=== PATIENT | female | born 1935 | race Caucasian/White ===

== ENCOUNTER 2019-01-28 10:29 | Inpatient (IN) | payer MEDICARE, BC ==
[~2019-01-28] VITALS: Ht 162.6 cm; Wt 82.0 kg
--- NOTE | 2019-01-28 10:49 | NUR ---
pt sat 79 placed on rebreather
[2019-01-28] MEDS ORDERED: furosemide 40mg/4ml inj IV ONE (11:15)
[2019-01-28] MEDS ORDERED: Dextrose 10%-water IV solution 1,000 ML IV ONE (11:52)
[2019-01-28 12:18] LABS: PARTIAL THROMBOPLASTIN TIME 35 SECONDS (22-32)
[2019-01-28 12:32] LABS: CLARITY,URINE CLOUDY (Clear); GLUCOSE, URINE NEGATIVE (Neg); KETONES,URINE 15 mg/dl (Neg); LEUKOCYTE ESTERASE ,URINE NEGATIVE (Neg); NITRITES, URINE NEGATIVE (Neg); OCCULT BLOOD,URINE MODERATE (Neg); PROTEIN,URINE >=300 mg/dl (Neg)
[2019-01-28 12:33] LABS: COLOR,URINE DARK YELLOW (Yellow); UA COLLECTION TYPE FOLEY CATH
[2019-01-28 12:35] LABS: ALBUMIN 3.2 G/DL (3.4-5.0); ALKALINE PHOSPHATASE 116 IU/L (46-116); ANION GAP 22 (8-16); BILIRUBIN,TOTAL 4.8 MG/DL (0.1-1.0); BLOOD UREA NITROGEN 31 MG/DL (7-18); BUN/CREATININE RATIO 16.4 (6.6-38.0); CHLORIDE 101 MMOL/L (99-107); CREATININE 1.89 MG/DL (0.40-0.90); GLUCOSE 64 MG/DL (70-104); SODIUM 140 MMOL/L (135-145); TOTAL CARBON DIOXIDE 17.5 MMOL/L (24-32); eGFR 26 ML/MIN
[2019-01-28 12:40] LABS: POTASSIUM 5.4 MMOL/L (3.5-5.1)
[2019-01-28 12:40] LABS: BACTERIA,URINE FEW /HPF (Neg); SQUAMOUS EPITHELIAL CELL,UR MODERATE /LPF (FEW)
[2019-01-28 12:41] LABS: AMORPHOUS URATES 4+; MUCUS STRANDS FEW /LPF (Neg); RENAL CELLS, URINE MODERATE /HPF; TRANSITIONAL EPI CELLS,URINE MANY /HPF; WBC CLUMPS,URINE FEW /HPF (NEGATIVE)
[2019-01-28 12:42] LABS: CAL OXALATE CRYSTALS FEW /HPF (NEGATIVE)
[2019-01-28 12:50] LABS: ALBUMIN/GLOBULIN RATIO 0.9 (1.1-1.5); TOTAL PROTEIN 6.9 G/DL (6.4-8.2)
[2019-01-28 12:53] LABS: ALANINE AMINOTRANSFERASE 5742 U/L (12-78); ASPARTATE AMINO TRANSFERASE > 7000 U/L (10-37)
[2019-01-28] MEDS ORDERED: CefTRIAXone/D5W-Rocephin 1gm 50 ML IV ONE (13:35)
[2019-01-28] MEDS ORDERED: vancomycin/NS 1 GM ADD-VANTAGE 250 ML IV ONE (13:35)
[2019-01-28 14:47] LABS: BASOPHILS % (AUTO) 0.2 % (0-1); EOSINOPHILS # (AUTO) 0.2 X10'3 (0-0.9); EOSINOPHILS % (AUTO) 0.9 % (0-6); HEMOGLOBIN 15.5 g/dl (12.0-16.0); LYMPHOCYTES # (AUTO) 0.6 X10'3 (1.1-4.8); LYMPHOCYTES % (AUTO) 3.1 % (21-51); MEAN CORPUSCULAR HEMOGLOBIN 29.4 PG (27.0-31.0); MEAN CORPUSCULAR HGB CONC 31.6 g/dL (33.0-36.5); MEAN CORPUSCULAR VOLUME 92.9 FL (78-98); MEAN PLATELET VOLUME 9.7 FL (7.4-10.4); MONOCYTES # (AUTO) 1.3 X10'3 (0-0.9); MONOCYTES % (AUTO) 6.2 % (2-12); NEUTROPHILS # (AUTO) 18.4 X10'3 (1.8-7.7); NEUTROPHILS % (AUTO) 89.6 % (42-75); PLATELET COUNT 101 X10'3 (140-440); RED BLOOD COUNT 5.27 X10'6 (4.20-5.60); RED CELL DISTRIBUTION WIDTH 14.7 % (11.5-14.5); WHITE BLOOD COUNT 20.5 X10'3 (4.5-11.0)
[2019-01-28] MEDS ORDERED: ASPI81TA52 PO (14:48)
[2019-01-28] MEDS ORDERED: PREG150C PO (14:48)
[2019-01-28] MEDS ORDERED: ESCI20TA PO (14:48)
[2019-01-28] MEDS ORDERED: METO-467 PO (14:48)
[2019-01-28] MEDS ORDERED: FURO-150 PO (14:48)
[2019-01-28] MEDS ORDERED: OMEP40CA13 PO (14:48)
[2019-01-28] MEDS ORDERED: PRAV40TA3 PO (14:48)
[2019-01-28] MEDS ORDERED: MYCO250C46 PO (14:48)
[2019-01-28] MEDS ORDERED: HYDR-4353 PO (14:48)
[2019-01-28 14:51] LABS: ABG BASE EXCESS -11.2 mmol/L (-2.0-3.0); ABG HCO3 14.3 mmol/L (22.0-26.0); ABG OXYGEN SATURATION 77.8 % (95-98); ABG PH (T) 7.268 (7.350-7.450); ABG PO2 (T) 52.2 mmHg (83-108); ALLEN'S TEST Positive; FCOHb 1.3 % (0.5-1.5); FMetHb 0.2 % (0.3-1.12); FO2Hb 76.6 % (94-100); MINUTE VOLUME 15 L/min; PEEP 8 cm H2O; RESPIRATORY RATE (OBSERVED) 24 b/min; TOTAL HEMOGLOBIN 16.7 G/dl (12.0-16.0)
--- NOTE | 2019-01-28 15:24 | NUR ---
DR MEDELLIN AWARE OF CRITICAL VALUE LACTIC ACID 7.6
--- NOTE | 2019-01-28 15:39 | NUR ---
relieving RN for lunch, family at bedside with pt, pt is on bipap, chastity well, waiting to be evaluated by hospitalist for "comfort care bed" per family
[2019-01-28] MEDS ORDERED: ondansetron/PF 4mg/2ml inj IV PRN (16:20)
[2019-01-28] MEDS ORDERED: acetaminophen 325mg tablet PO PRN (16:20)
[2019-01-28] MEDS ORDERED: morphine 2 MG/ML inj. syringe IV PRN ×2 (16:20)
[2019-01-28] MEDS ORDERED: morphine 10mg/0.5ml (conc. morphine) oral syringe PO PRN (16:25)
[2019-01-28] MEDS ORDERED: hyoscyamine 0.125mg TAB.SUBL SL PRN (16:25)
[2019-01-28] MEDS ORDERED: LORazepam 2 mg/ml vial IV PRN (16:25)
[2019-01-28] MEDS ORDERED: LORazepam 0.5 MG tablet PO PRN (16:25)
--- NOTE | 2019-01-28 16:30 | NUR ---
Patient in room . I have received report from Rabia in the ED and had the opportunity to ask questions and assume patient care.
[2019-01-28 16:39] LABS: PLATELET ESTIMATE DECREASED; POLYCHROMASIA FEW; TOTAL CELLS COUNTED 100
--- NOTE | 2019-01-28 17:02 | NUR ---
Pt arrived on the floor, tucked in, family present
--- NOTE | 2019-01-28 17:19 | NUR ---
Pt is able to respond to questions regarding presence of pain, comfort measures wanted. Pt declined pain medication at this time. Limited assessment per pt (comfort care).
[2019-01-28 18:00] VITALS: BP 93/33
--- NOTE | 2019-01-28 18:11 | NUR ---
Problems reprioritized. Patient report given, questions answered & plan of care reviewed with Nora Bennett
--- NOTE | 2019-01-28 18:48 | NUR ---
Received report. Patient came from ER on comfort care. DART/MRSA swab declined by family.
[2019-01-28] MEDS ORDERED: furosemide 40mg/4ml inj IV SCH (20:00)
--- NOTE | 2019-01-29 05:29 | NUR ---
RN IS TO DOCUMENT YES TO ALL APPLICABLE AREAS Pronouncement of : 1. Time Physician Notified: [id number] 2. Date of : 01/29/19 3. Time of : 509 4. DNR/Withdraw life support documented: Y 5. Monitor strip has been placed on chart: Y 6. Assessment process is of one-minute duration and includes following criteria: a) Patient is unresponsive to all stimuli: Y b) Pupils fixed and non-reactive: Y c) Auscultation of precordium reveals absence of heart tones: Y d) Auscultation of lungs reveals absence of breath sounds: Y e) Absence of blood pressure / all vital signs: Y f) QRS complexes are not present on monitor / EKG strip:Y g) Pacer spikes without capture:N/A 4. Comments: Family was at bedside when patient passed. Last breath was witnessed by myself. notified. [facility] notified. Family signed consent to release to [facility].
--- NOTE | 2019-01-29 06:15 | NUR ---
Report received from ELIZABETH Melendez. Pt at 509. awaiting transfer [facility] to [facility]
--- NOTE | 2019-01-29 07:15 | NUR ---
Pt taken care of per protocol. IV, FC DCd, pt transferred [facility] by [facility] staff
== END 2019-01-29 07:33 | disposition expired | DRG 871 ==
LOC: ER 10:30 → ORTHO 4S 17:23
PROVIDERS: ADMIT Family Medicine; ATTEND Emergency Medicine
PROC: 5A09357 Assistance with Respiratory Ventilation, Less than 24 Consecutive Hours, Continuous Positive Airway Pressure (ICD-10-PCS; principal; 2019-01-28)
DX: A41.9 Sepsis, unspecified organism (principal); K72.00 Acute and subacute hepatic failure without coma; J96.01 Acute respiratory failure with hypoxia; E87.2 Acidosis; I50.9 Heart failure, unspecified; M06.9 Rheumatoid arthritis, unspecified; N19 Unspecified kidney failure; Z66 Do not resuscitate; Z51.5 Encounter for palliative care; Z96.659 Presence of unspecified artificial knee joint; R00.0 Tachycardia, unspecified; I95.9 Hypotension, unspecified; M54.9 Dorsalgia, unspecified; Z90.711 Acquired absence of uterus with remaining cervical stump; Z88.1 Allergy status to other antibiotic agents; Z88.0 Allergy status to penicillin; Z88.8 Allergy status to other drugs, medicaments and biological substances; Z90.49 Acquired absence of other specified parts of digestive tract; Z79.899 Other long term (current) drug therapy; Z79.82 Long term (current) use of aspirin
CPT/HCPCS: 36415; 36600; 71045; 76700; 80053; 81001; 82803; 82948; 83605; 84145; 84484; 85018; 85025; 85610; 85730; 87040; 87088; 93005; 94660; 94760; 99285; G0378; J0696; J1940; J2060; J2270